=== PATIENT | male | born 1960 | race Caucasian/White ===

== ENCOUNTER 2017-10-13 18:10 | Emergency (ER) | payer OTHER ==
[~2017-10-13] VITALS: Ht 177.8 cm; Wt 99.8 kg
[2017-10-13] MEDS ORDERED: ONDANSETRON 4 MG ODT PO STA (18:17)
[2017-10-13] MEDS ORDERED: ONDANSETRON 4 MG ODT ONE (18:20)
--- NOTE | 2017-10-13 18:37 | NUR ---
PATIENT PRESENTS TO ED WITH C/O DIZZINESS, GENERALIZED PARESTHESIA, N/V X 30MINS AGO----WEAKNESS UNABLE TO AMBULATE ON HIS OWN PT ATTRIBUTES THIS TO EATING FISH----DENIES HAHTAWAY, DENIES ABDOMINAL PAIN, FULL CLEAR SPEECH, NO FACIAL ASYMMETRY NOTED, MOVING EXTREMITIES EQUALLY HX---DENIES RX---NONE; DENIES DIARRHEA; SKIN IS PINK/WARM/DRY; AAOX4 WITH EVEN AND STEADY GAIT; LUNGS CLEAR BL; HR EVEN AND REGULAR; PT DENIES ANY FEVER, CP, SOB, OR COUGH AT THIS TIME; PATIENT STATES PAIN OF 0/10 AT THIS TIME; VSS; PATIENT POSITIONED FOR COMFORT; HOB ELEVATED; BEDRAILS UP X2; BED DOWN. ER MD MADE AWARE OF PT STATUS.
--- NOTE | 2017-10-13 18:37 | NUR ---
WHEEL CHAIR ASSISTED TO CHAIR D
--- NOTE | 2017-10-13 19:16 | NUR ---
REPORT GIVEN TO OG CASTAÑEDA FOR CONTINUATION OF CARE
--- NOTE | 2017-10-13 20:15 | NUR ---
PATIENT RESTING AT THIS TIME.
--- NOTE | 2017-10-13 20:19 | NUR ---
PATIENT MOVED TO ER BED 11.
--- NOTE | 2017-10-13 20:20 | NUR ---
Pt report given to CHELSI FOLEY. Transfer of care at this time.
[2017-10-13] MEDS ORDERED: NACL 0.9% 1,000 ML IV SCH (20:26)
[2017-10-13] MEDS ORDERED: ONDANSETRON 4 MG/2 ML VIAL IVP ONE (20:30)
[2017-10-13] MEDS ORDERED: MORPHINE SULFATE 4 MG/ML SYR IVP ONE (20:30)
[2017-10-13] MEDS ORDERED: FAMOTIDINE 20 MG/2 ML VIAL IVP ONE (20:30)
[2017-10-13 21:23] LABS: HEMATOCRIT 45.7 % (36-52); HEMOGLOBIN 15.3 g/dL (12.0-18.0); MEAN CORPUSCULAR HEMOGLOBIN 28 pg (27-31); MEAN CORPUSCULAR HGB CONC 33 g/dL (33-37); MEAN CORPUSCULAR VOLUME 85 fL (80-94); PLATELET COUNT (AUTO) 215 K/uL (140-450); RED BLOOD CELL COUNT(AUTO) 5.39 MIL/uL (4.20-6.10); RED CELL DISTRIBUTION WIDTH 12.4 % (11.6-13.7); WHITE BLOOD COUNT (AUTO) 15.2 K/uL (4.8-10.8)
[2017-10-13 21:39] LABS: ALBUMIN 3.8 g/dL (3.4-5.0); ANION GAP 13.8 (8-16); CARBON DIOXIDE 25.6 mmol/L (21-32); CREATININE 0.9 mg/dL (0.7-1.3); POTASSIUM 3.4 mmol/L (3.5-5.1); TOTAL BILIRUBIN 0.5 mg/dL (0.0-1.0)
[2017-10-13 21:40] LABS: LYMPHOCYTES % (MANUAL) 10 % (20-46); MONOCYTES % (MANUAL) 3 % (5-12)
[2017-10-13] MEDS ORDERED: PROCHLORPERAZINE 10 MG/2 ML VIAL IVP ONE (22:10)
[2017-10-13] MEDS ORDERED: NACL 0.9% 1,000 ML IV ONE (22:10)
--- NOTE | 2017-10-13 22:10 | NUR ---
Patient appears to be resting comfortably in bed. Vital Signs within normal limits. Respirations even and unlabored. reports 2/10 abdominal pain, states "i feel better".
[2017-10-13 22:11] LABS: APPEARANCE,URINE CLEAR (CLEAR); BILIRUBIN,URINE NEGATIVE (NEGATIVE); BLOOD, URINE NEGATIVE (NEGATIVE); COLOR,URINE YELLOW (YELLOW); LEUKOCYTE ESTERASE ,URINE NEGATIVE (NEGATIVE); NITRITE, URINE NEGATIVE (NEGATIVE); PH,URINE 7.5 (5.0-9.0); UGLUCOSE NEGATIVE (NEGATIVE)
--- NOTE | 2017-10-13 22:20 | NUR ---
Ultrasound at bedside.
--- NOTE | 2017-10-13 23:33 | NUR ---
Patient discharged with v/s stable. Written and verbal after care instructions given and explained. Patient alert, oriented and verbalized understanding of instructions. Ambulatory with steady gait. All questions addressed prior to discharge. ID band removed. Patient advised to follow up with PMD. Rx of PEPCID, ATIVAN, ZOFRAN ODT given. Patient educated on indication of medication including possible reaction and side effects. Opportunity to ask questions provided and answered. Addendum: 10/13/17 at 2348 by SHANNAN IV removed, catheter intact and site benign. Applied folded 4x4 gauze and tape to stop bleeding.
[2017-10-13 23:48] VITALS: BP 121/77
== END 2017-10-13 23:33 | disposition home or self-care (01) ==
LOC: MED 18:10
DX: K52.9 Noninfective gastroenteritis and colitis, unspecified (principal)
CPT/HCPCS: 36415; 74176; 76705; 80053; 81003; 83690; 85025; 93005; 96361; 96374; 96375; 99285; J0780; J2270; J2405; J3490; J7030; Q0092; S0119